=== PATIENT | female | born 1995 | race Caucasian/White ===

== ENCOUNTER 2019-04-05 13:33 | Emergency (ER) | payer SELFPAY ==
[2019-04-05 13:34] VITALS: BP 127/84; PULSE 93; RESP 16; TEMP 36.6; O2SAT 97; BMI 38.4
--- NOTE | 2019-04-05 14:07 | RAD_ITS ---
STUDY: X-RAY CHEST REASON FOR EXAM: Female, 24 years old. CHEST COLD WITH TIGHTNESS TECHNIQUE: Single AP portable view of the chest. COMPARISON: None. FINDINGS: The lungs are clear and expanded. There is no demonstrated pleural abnormality. Normal size heart. Normal mediastinum and lynda. Normal visualized pulmonary arteries. Normal visualized aortic arch and descending thoracic aorta. Normal visualized thoracic spine. Normal visualized ribs, clavicles, and shoulders. There is no demonstrated abnormality of the visualized soft tissue structures of the upper abdomen. RAD/Chest 1 View (Portable) IMPRESSION: Normal x-ray examination of the chest. Electronically Signed: Janusz Ramirez MD at 15:44 EST , Service support ,
[2019-04-05 15:31] VITALS: PULSE 89; RESP 17; TEMP 36.8
[2019-04-05] MEDS: Mag Hydrox/Al Hydrox/Simeth 30 ML UDC PO (16:00)
--- NOTE | 2019-04-05 16:00 | ED.DCSUM_ITS ---
- ER Visit Summary Date of Service: 04/05/19 Chief Complaint: Chest tightness History of Present Illness: The patient is a 24 F who presents with chest tightness that began yesterday morning when she woke up. Patient states it feels tight in her upper chest. Patient states she has been having some difficu lty swallowing. Patient states she is able to swallow some liquids but feels like there is something that gets stuck in her chest. Patient also states she has been having to chew her food really small in order to be able to swallow. Patient admits to some slight shortness of breath. Patient admits to some pain in her upper back. Patient states her pain is also worse with deep breathing and coughing. Patient admits to nausea but denies any vomiting. Physical Examination: Vital signs are stable. Patient is afebrile. Patient is in no acute distress. Oral mucosa is pink and moist. Neck is supple. Trachea is midline. There is no JVD noted. Heart was regular rate and rhythm. Lungs are clear and equal bilaterally. Abdomen is soft. Bowel sounds are normal. Th ere is no tenderness. Cranial nerves II through XII are intact. There are no focal motor or sensory deficits noted. Test Results: Portable chest x-ray was obtained. There is no acute cardiopulmonary process. This was interpreted by the radiologist and myself. Emergency Department Course and Treatment: Patient was given a GI cocktail here. Patient had no improvement of her symptoms with this. Patient was instructed to follow-up with her primary care physician in 5 to 7 days. Patient was instructed return if she is unable to swallow anything. Patient and family understood and were agreeable with the plan. All questions were answered. Disposition: Discharge home Impression: Chest congestion This note was generated with [employer] dictation software. It may contain incorrect words, spelling, and punctuation that were not noted in review of the chart prior to signing ED Disposition - Plan for ED Patient: Disposition: Home or Assisted Living Diagnosis: Chest congestion Instructions: CHEST PAIN, Uncertain Cause Referrals: Mika Starr DO [Primary Care Provider] - 5-7 Days
[2019-04-05 17:06] VITALS: PULSE 88; RESP 16; TEMP 36.8; O2SAT 97
== END 2019-04-05 17:08 | disposition home or self-care (01) ==
PROVIDERS: Emergency Provider Emergency Medicine; Family Provider Family Medicine; PCP Family Medicine
DX: R09.89 Other specified symptoms and signs involving the circulatory and respiratory systems (principal); M54.9 Dorsalgia, unspecified; R51 Headache; R11.0 Nausea; R06.09 Other forms of dyspnea; R07.9 Chest pain, unspecified
CPT/HCPCS: 71045; 99283

== ENCOUNTER → 2020-10-16 15:36 | Outpatient (CLI) | payer SELFPAY ==
[2020-10-16 14:34] VITALS: BMI 38.4
[2020-10-16 16:26] LABS: Estradiol 31.9 pg/mL; Prolactin 11.4 ng/mL
[2020-10-16 16:27] LABS: Hemoglobin A1c 5.6 % (3.8-5.6)
[2020-10-23 07:57] LABS: Testosterone Free 1.5 pg/mL (0.0-4.2)
[2020-10-26 12:58] LABS: 17-Hydroxyprogesterone 46 ng/dL (.)
== END ==
PROVIDERS: PCP Family Medicine; Referring Provider Obstetrics & Gynecology; Visit Provider Obstetrics & Gynecology
DX: N93.9 Abnormal uterine and vaginal bleeding, unspecified (principal); D25.9 Leiomyoma of uterus, unspecified
CPT/HCPCS: 36415; 82627; 82670; 83001; 83036; 83498; 84146; 84402; 82626

== ENCOUNTER → 2020-10-20 10:16 | Outpatient (CLI) | payer SELFPAY ==
[2020-10-16 14:34] VITALS: BMI 38.4
--- NOTE | 2020-10-20 10:24 | US_ITS ---
STUDY: ULTRASOUND OF THE FEMALE PELVIS - COMPLETE REASON FOR EXAM: Female, 25 years old. aub/uterine fibroid LMP: 10/13/2020. TECHNIQUE: Transabdominal and Transvaginal TECHNICAL QUALITY: Adequate. COMPARISON: None. FINDINGS: The uterus is anteverted and is in a midline position. The uterus measures 9.3 cm x 5.3 cm x 3.8 cm. Normal uterine cervix. The endometrium measures 8.5 mm in thickness, and is hyperechoic. There is no demonstrated endometrial mass. There is evidence of a 8.1 cm x 7.6 x 6 cm pedunculated uterine fundal fibroid. I.U.D. - The patient does not have an I.U.D. The right ovary is visualized. The right ovary measures 2.9 cm x 2.2 cm x 1.9 cm. There is no right ovarian cyst or ovarian mass. There is no visualized right adnexal mass or complex lesion. There is normal arterial and normal venous vascularity. The left ovary is visualized. The left ovary measures 2.6 cm x 1.5 cm x 1.3 cm. There is no left ovarian cyst or ovarian mass. There is no visualized left adnexal mass or complex lesion. There is normal arterial and normal venous vascularity. There is a moderate amount of fluid in the cul-de-sac. US/Transvaginal Non- IMPRESSION: Large fibroid. Moderate amount of free fluid in the pelvis. Electronically Signed: Carlo Clancy MD at 15:42 EDT , Service support ,
--- NOTE | 2020-10-20 10:24 | US_ITS ---
STUDY: ULTRASOUND OF THE FEMALE PELVIS - COMPLETE REASON FOR EXAM: Female, 25 years old. aub/uterine fibroid LMP: 10/13/2020. TECHNIQUE: Transabdominal and Transvaginal TECHNICAL QUALITY: Adequate. COMPARISON: None. FINDINGS: The uterus is anteverted and is in a midline position. The uterus measures 9.3 cm x 5.3 cm x 3.8 cm. Normal uterine cervix. The endometrium measures 8.5 mm in thickness, and is hyperechoic. There is no demonstrated endometrial mass. There is evidence of a 8.1 cm x 7.6 x 6 cm pedunculated uterine fundal fibroid. I.U.D. - The patient does not have an I.U.D. The right ovary is visualized. The right ovary measures 2.9 cm x 2.2 cm x 1.9 cm. There is no right ovarian cyst or ovarian mass. There is no visualized right adnexal mass or complex lesion. There is normal arterial and normal venous vascularity. The left ovary is visualized. The left ovary measures 2.6 cm x 1.5 cm x 1.3 cm. There is no left ovarian cyst or ovarian mass. There is no visualized left adnexal mass or complex lesion. There is normal arterial and normal venous vascularity. There is a moderate amount of fluid in the cul-de-sac. US/Pelvic (Non ) IMPRESSION: Large fibroid. Moderate amount of free fluid in the pelvis. Electronically Signed: Carlo Clancy MD at 15:42 EDT , Service support ,
== END ==
PROVIDERS: PCP Family Medicine; Referring Provider Obstetrics & Gynecology; Visit Provider Obstetrics & Gynecology
DX: N93.9 Abnormal uterine and vaginal bleeding, unspecified (principal); D25.9 Leiomyoma of uterus, unspecified
CPT/HCPCS: 76830; 76856

== ENCOUNTER 2020-12-02 08:20 | Inpatient (IN) | payer SELFPAY ==
[2020-10-16 14:34] VITALS: BMI 38.4
[2020-12-02] VITALS (14 sets, daily range): BP systolic 109–127; BP diastolic 62–89; PULSE 74–102; RESP 16–18; TEMP 36.4–36.8; O2SAT 93–100; BMI 39.6; BMI 41.8
--- NOTE | 2020-12-02 02:36 | HP.PCM_ITS ---
History and Physical Date of Admission: 12/02/20 Vital Signs 11/06/20 12:59 11/06/20 12:59 Height 5 ft 6 in Weight: 243 lb BMI 39.2 38.4 BP 134/90 H Intake Visit Reasons: 4 WK FU Pediatric Speech Therapist Required: No Is patient in pain?: Yes Allergies No Known Allergies Allergy (Verified 11/06/20 12:59) Medications norethindrone acetate 5 mg tablet 5 mg PO .COMPLEX #30 tab 10/16/20 [Rx Confirmed 11/06/20] sertraline 100 mg tablet 100 mg PO DAILY 10/16/20 [History Confirmed 11/06/20] Post menopausal: No Patient : No : No FOR[facility]LY [facility], [facility] Medical History Anxiety Family History Grandmother CVA (cerebral vascular accident) Diabetes Grandfather CVA (cerebral vascular accident) Diabetes Social History Smoking Status: Never smoker alcohol intake: never substance use type: does not use what type of physical activity do you participate in: none seatbelt use: always do you feel safe at home: Yes additional social history: Alba Hernandez- [place] siding [facility] 4 WK FU Details: SARAH LEE is a 25 year old who presents for fu of AUB and uterine fibroid. she is having increased pain and having trouble working due to this. She will bend over or go to lift something and have severe nausea and sharp shooting pain in her lower belly. She also feels bloating and discomfort in the mid to upper abdomen. She is having heavy irregular bleeding also. Female Reproductive History Menopausal Symptoms: Yes hot flashes, Yes night sweats, No difficulty concentrating and No change in libido Pregancy History 0 Elective abortions Hx Para Spontaneous abortions Hx # Term Pregnancies Ectopic pregnancies Hx # Pregnancies Multiple births # of living children ROS Const Constitutional: Reports night sweats; Denies fatigue, weight gain or weight loss ENT ENT: Reports system reviewed and no additional complaints, except as documented Cardio Card: Denies chest pain Resp Resp: Denies cough or dyspnea GI GI: Reports as per HPI; Denies constipation, nausea or vomiting : Reports as per HPI, hot flashes, menorrhagia, metrorrhagia and urinary frequency; Denies nipple discharge, pelvic pain, vaginal discharge, vaginal dryness, vaginal odor or vaginal pruritus Musc Musc: Denies arthralgias, back pain or muscle weakness Skin Skin/Breast: Denies alopecia, change in hair, dry skin, breast mass, breast pain, breast skin changes or nipple discharge Neuro Neuro: Reports system reviewed and no additional complaints, except as documented Psych Psych: Reports system reviewed and no additional complaints, except as documented; Denies change in libido or difficulty concentrating Endo Endo: Denies cold intolerance, excessive sweating, heat intolerance or polydipsia Shorty/Lymph Hematologic/Lymphatic: Denies easy bleeding, Denies easy bruising and Denies lymphadenopathy Exam Const General: cooperative, healthy appearing, comfortable, no acute distress and well developed Orientation: alert [facility] Head: normal to inspection and normocephalic Ears: hearing grossly normal bilaterally and external ears normal Nose: external nose normal and nares normal Face and sinus: normal facial exam Neck Neck: normal visual inspection and no lymphadenopathy Thyroid: thyroid normal Chest Chest palpation & inspection: normal inspection of the chest Resp Effort & Inspection: normal respiratory effort Auscultation: clear to auscultation bilaterally Cardio Rate: regular rate Rhythm: regular rhythm Heart Sounds: S1 normal and S2 normal GI Inspection: normal to inspection, non-distended and other (Enlarged uterus palpable on exam) Palpation: soft and no hepatosplenomegaly Musc Other: gross motor intact no deficits, full bilateral strength Skin General: no rashes or lesions noted Neuro General: patient alert, patient awake, moves all extremities and no focal motor deficits Motor: muscle tone normal throughout Extrem General: normal to inspection and no pedal edema Psych Appearance: grossly normal Mental Status: mental status grossly normal Affect: normal affect Speech and Movement: speech and movement normal Coding Level of Care Code Off vis,est,level 4 Diagnoses Fibroid, uterine D25.9 Infertility due to oligo-ovulation N97.0 Abnormal uterine bleeding due to intramural leiomyoma N93.9; D25.1 Anxiety F41.9 Assessment and Plan Assessment and Plan (1) Fibroid, uterine: Status: Acute Comment: naproxen, percocet PRN, plan abdominal myomectomy. Plan - Dr. Miryam Keating MD: After discussing the patient's diagnosis and treatment plan options, patient wishes to proceed with surgical management. I have discussed with the patient the risks, benefits, and alternatives of the procedure which include but are not limited to risks of anesthesia, bleeding, infection, possible damage to bowel, bladder, or surrounding vasculature which could lead to additional surgery to evaluate any complications. Patient agrees to procedure and wishes to proceed. ACOG/uptodate references given for additional information regarding procedure. (2) Infertility due to oligo-ovulation: Status: Acute Comment: lab evaluation ordered. possible PCOS (3) Abnormal uterine bleeding due to intramural leiomyoma: Status: Acute Comment: 6 cm subserosal fibroid, oligomenorrhea will evaluate for PCOS. stop OCP and will take Aygestin PRN (4) Anxiety: Status: Acute Comment: zoloft, increased with aviane
[2020-12-02 08:49] LABS: Internal QC Validated? YES +Cl - CLEAR BKGD
--- NOTE | 2020-12-02 08:51 | OP.PCM_ITS ---
Problems Associated Problem List Diagnoses (1) Anxiety: (2) Abnormal uterine bleeding due to intramural leiomyoma: (3) Infertility due to oligo-ovulation: (4) Fibroid, uterine: Report of Operation Date of Procedure: 12/02/20 Pre-Operative Diagnosis: uterine fibroid Post-Operative Diagnosis: same Surgery/Procedure Performed:: abdominal myomectomy dishwashing machine repairer: Spencer Craft Type of Anesthesia: General Special Medications: vasopressin, surgicel Specimen's removed: fibroid Drains: molina Estimated Blood Loss (mL): 100 Fluids Replaced: crystalloid Description of Procedure: The patient was taken to the operating room and placed under general anesthesia in the dorsal supine position. She was prepped and draped in the normal sterile fashion. Molina catheter was placed in the bladder SCDs were on and preoperative antibiotics were given. A Pfannenstiel skin incision was made with the scalpel and carried through the underlying layer of the fascia with the scalpel, fascia was nicked in the midline, incision extended laterally. Rectus bellies were dissected off superiorly and inferiorly sharply and bluntly and peritoneum entered digitally, incision stretched laterally and the retractor was placed after the bowel was packed away. The uterus was identified and noted to be significantly enlarged approximately 9x7 cm subserosal. The ovaries were noted to be within normal limits. Vasopressin was injected into the fibroid and under their serosa. Incision was made across the serosa and then the fibroid was shelled out without complication. The uterine defect was closed in 3 layers with first 3- Monocryl and finishing with a baseball stitch of 4-0 Monocryl across the uterine serosa. intercede was placed over the incision after excellent hemostasis was noted. Excellent hemostasis was noted all instruments removed from the abdomen and the peritoneum was closed with 3-0 Monocryl fascia closed with 0 PDS subcutaneous tissue reapproximated with 3-0 Monocryl and the skin closed with 4-0 Monocryl. Patient was awoken and taken recovery in stable condition. Complications none Admit VTE Documentation VTE Present on Admission: No VTE Mechan Device Prophylaxis: SCD's VTE Pharm Prophylaxis ordered?: Yes Multi Select Codes Urinary/Genital Urinary/Genital CPT Codes: 50009 Myomectomy, 1-4fibroids <250gr uterus
[2020-12-02 08:52] LABS: Pregnancy, Urine Negative Negative
--- NOTE | 2020-12-02 08:57 | PCM.DC ---
Discharge Instructions Diet Discharge Diet: No restrictions Activity Discharge Activity: Return to Normal Activity, May Not Drive (while taking narcotic pain medications.) and May Shower May resume sexual activity in: 6-8 weeks Weight Bearing Status: Weight bearing as tolerated Dressing / Incision Call your doctor if your incision/area has: Continuous Slow Oozing, Sudden Increased Bleeding, Increased Pain/ Swelling, Increased Redness and Foul Smelling Discharge Call your doctor if you observe: Fever of 101 or Higher, Inability to urinate, Inability to have a bowel movement and Using more than 1 pad per hour Follow Up Care Please Follow Up With: Miryam Keating MD Test Results: Test results from this visit will be discussed in further detail at your follow-up appointment, if applicable. Discharge Plan Admission Admit Date/Time: 12/02/20 08:20 Primary Reason for Your Visit: fibroid removal Attending Provider: Miryam Keating Primary Care Provider: Carrie Mckeon Consulting Providers: Torie Boykin Discharge Orders/Prescriptions Prescriptions: New naproxen 250 MG tablet 250 - 500 mg PO Q8H PRN PRN (Reason: MILD PAIN) Qty: 30 RF: 1 oxycodone-acetaminophen [Percocet] 5-325 mg tablet 1 tab PO Q6H PRN (Reason: pain) 7 Days Qty: 20 RF: 0 Continued sertraline [Zoloft] 100 mg tablet 100 mg PO BID RF: 0 Referrals / Follow Up: Carrie Mckeon PA [Primary Care Provider] -
[2020-12-02 09:11] LABS: Absolute Lymphocyte Count 2.24 X10^3/uL (0.83-4.51); Absolute Neutrophil Count 6.6 X10^3/uL (2.0-7.7); Basophil# 0.03 X10^3/uL; Basophil% 0.3 % (0-1); Eosinophil# 0.09 X10^3/uL; Eosinophils% 0.9 % (0-5); Hematocrit 43.4 % (37-47); Hemoglobin 13.7 g/dL (12.0-15.0); Lymphocyte # 2.24 X10^3/ul (0.83-4.51); Lymphocyte % 23.6 % (19-41); Mean Corp Hgb Conc 31.6 g/dL (32-36); Mean Corpuscular Volume 82.5 fL (81-99); Mean Platelet Vol. 8.6 fl (6.2-12.0); Monocyte# 0.53 X10^3/uL; Monocyte% 5.6 % (0-10); NRBC Flagged by Analyzer 0 % (0-5); Neutrophil # 6.57 X10^3/uL (2.7-7.7); Neutrophil % 69.4 % (47-70); Platelet Count 446 K/mm3 (150-450); RBC Distribution Width CV 13.1 % (11.6-14.6); RBC Distribution Width SD 39.7 fl (35.1-43.9); Red Blood Count 5.26 M/mm3 (4.2-5.4); White Blood Count 9.5 K/mm3 (4.4-11.0)
[2020-12-02] MEDS: Lactated Ringers 1,000 ML 100 ML IV ×2 (09:23→10:31)
[2020-12-02] MEDS: Cefotetan 2 GM in 0.9% NS 100 ML IV (09:40)
--- NOTE | 2020-12-02 10:00 | UTER_PTH ---
PATIENT: SARAH LEE LOC: MS3 U#:[id number] AGE/SX: 25/F ROOM: WY305 RE12/02/[address]: Dr. Miryam Keating MD : 1995 BED: 1 DIS: 12/03/2020 SPEC #: [id number] RECD: 12/02/20 13:09 STATUS: BANDAR GRULLONPk #: [id number] JANET: 12/02/20 10:[address]: Miryam Keating DEPT: SURGICAL PATHOLOGY RECD BY: Sharon Lopez ENTERED: 12/02/20 13:26 SP TYPE: UTERINE CO OTHR DR: MD Carrie Jones PA Tissues: Uterine cervix, NOS Procedures: Surgery Specimen Level IV HEADER OPERATION: Abdominal myomectomy PRE-OP DIAGNOSIS: Abnormal uterine bleeding, uterine fibroid TISSUE SUBMITTED: Uterine fibroid MICROSCOPIC DIAGNOSIS Uterine fibroid, myomectomy: Leiomyoma (8.5 cm in greatest dimension) with extensive area of hyalinization. TIARA:ana 12/03/2020 MICROSCOPIC DESCRIPTION Slides are reviewed. GROSS DESCRIPTION Received in fixative is one container labeled with the patient's name and designated uterine fibroid. The specimen consists of a nodular piece of dutton, indurated tissue weighing 174 gm and measuring 8.5 x 7 x 6 cm. Sections of this mass reveals dutton whorled cut surfaces without areas of hemorrhage, necrosis or cystic degeneration. [employer] Teacher sections are submitted in four cassettes. / Desiree 12/02/20 TC:1 CPT: 98356
[2020-12-02] MEDS: Vasopressin 20 UNITS/ML Vial (10:30)
[2020-12-02] MEDS: Lactated Ringers 1,000 ML 70 ML IV (13:45)
--- NOTE | 2020-12-02 13:49 | NURSING ---
toradol and tylenol not on unit nor is it accessible in accudose at this time
--- NOTE | 2020-12-02 14:38 | NURSING ---
toradol and tylenol still not avialable in accudose or have arrived to unit
[2020-12-02] MEDS: Ketorolac 30 MG/ML Syringe IV ×2 (14:46→21:41)
[2020-12-02] MEDS: Acetaminophen 500 MG Tablet 1000 MG PO ×2 (14:47→21:41)
[2020-12-02] MEDS: oxyCODONE 5 MG Tablet PO (16:13)
[2020-12-02] MEDS: Magnesium Chloride 64 MG Delay Rel.Tablet 128 MG PO (16:13)
[2020-12-02] MEDS: Docusate Sodium 100 MG Capsule PO (21:41)
[2020-12-02] MEDS: Sertraline 100 MG Tablet PO (21:41)
--- NOTE | 2020-12-02 22:54 | NURSING ---
covid 19 emergency charting initiated 12/02/20
[2020-12-03 03:04] VITALS: BP 116/67; PULSE 70; RESP 18; TEMP 36.9; O2SAT 97
[2020-12-03] MEDS: Acetaminophen 500 MG Tablet 1000 MG PO ×2 (03:12→08:58)
[2020-12-03] MEDS: Lactated Ringers 1,000 ML 70 ML IV (03:12)
[2020-12-03] MEDS: Ketorolac 30 MG/ML Syringe IV ×2 (03:13→08:58)
[2020-12-03 07:25] LABS: Hematocrit 41.1 % (37-47); Hemoglobin 12.7 g/dL (12.0-15.0); Mean Corp Hgb Conc 30.9 g/dL (32-36); Mean Corpuscular Hgb 26.1 pg (27.0-32.0); Mean Corpuscular Volume 84.6 fL (81-99); Platelet Count 455 K/mm3 (150-450); RBC Distribution Width CV 13.1 % (11.6-14.6); RBC Distribution Width SD 40.3 fl (35.1-43.9); Red Blood Count 4.86 M/mm3 (4.2-5.4); White Blood Count 15.6 K/mm3 (4.4-11.0)
--- NOTE | 2020-12-03 07:55 | PN.OBGYN_ITS ---
Subjective Subjective patient recovering well, denies CP, SOB, N, or V. patient is up in chair,tolerating adequate po, and pain is controlled. Objective Data Objective Data Vital Signs: Vital Signs Temp Pulse Resp BP Pulse Ox 98.5 F 70 18 116/67 97 12/03/20 03:04 12/03/20 03:04 12/03/20 03:04 12/03/20 03:04 12/03/20 03:04 Oxygen Flow Rate (L/min) 2 Oxygen Delivery Method Room Air Weight: 260 lb 9.382 oz Body Mass Index (BMI) 41.8 Intake & Output: Intake and Output for Last 24 Hours 12/01/20 12/02/20 12/03/20 23:59 23:59 23:59 Intake Total 2198.33 / 2198.33 1441.5 / 1441.5 Output Total 550 / 550 1300 / 1300 Balance 1648.33 / 1648.33 141.5 / 141.5 Lab / Micro Data Result Diagrams: 12/03/20 06:00 Labs: Laboratory Results - last 24 hr 12/02/20 08:35: Urine Test Negative 12/02/20 09:00: WBC 9.5, RBC 5.26, Hgb 13.7, Hct 43.4, MCV 82.5, MCH 26.0 L, MCHC 31.6 L, RDW Std Deviation 39.7, RDW Coeff of Roberto 13.1, Plt Count 446, MPV 8.6, Immature Gran % (Auto) 0.200, Neut % (Auto) 69.4, Lymph % (Auto) 23.6, [place] % (Auto) 5.6, Eos % (Auto) 0.9, Baso % (Auto) 0.3, Absolute Neuts (auto) 6.6, Absolute Lymphs (auto) 2.24, Nucleated RBC % 0 12/02/20 09:00: Blood Type O POSITIVE, Antibody Screen NEGATIVE 12/03/20 06:00: WBC 15.6 H, RBC 4.86, Hgb 12.7, Hct 41.1, MCV 84.6, MCH 26.1 L, MCHC 30.9 L, RDW Std Deviation 40.3, RDW Coeff of Roberto 13.1, Plt Count 455 H, MPV 9.0 Micro: Microbiology 12/01/20 09:00 Interface Orders SARS-CoV-2 Antigen (Rapid) - Final Physical Exam Const alert, oriented x3 and no apparent distress Resp normal respiratory effort GI soft to palpation and non-distended Inspection: incision other (dressing dry and intact) Narrative: Minimal drainage on peripad Bladder / Kidney Exam: catheter in place Assessment & Plan (1) S/P myomectomy: COMMENT: abdominal 12/02/20 PLAN: patient is s/p myomectomy POD 1 1. routine ERAS protocol postop care- increase ambulation, encourage oral intake and oral control of pain. lovenox and scds for dvt prophylaxis, patient stable for discharge to home.
[2020-12-03 08:11] VITALS: O2SAT 95
[2020-12-03 08:55] VITALS: BP 106/61; PULSE 80; RESP 16; TEMP 36.6; O2SAT 99
[2020-12-03] MEDS: Enoxaparin 40 MG/0.4 ML Syringe SC (08:58)
[2020-12-03] MEDS: Docusate Sodium 100 MG Capsule PO (08:58)
[2020-12-03] MEDS: Sertraline 100 MG Tablet PO (08:58)
--- NOTE | 2020-12-03 10:12 | CASEMGMT ---
SARA COBB Assessment: Face to Face with pt for initial transition planning/care coordination assessment. RN REZA introduced self and role at [facility], pt voices understanding and consents to assessment. Pt is A/O x4 and answers all questions appropriately at this time. Pt sitting up in chair with in room in no distress. Care providers, pharmacy, and demographics verified/updated. Admitting Dx: lap robotic myomectomy PCP: Carrie BUI Specialists: Rishabh COMPUTER FORENSIC EXAMINER Preferred Pharmacy: [facility] in [place] Insurance: [employer], [facility] Package Plan Prescription Benefit: no LW/HPOA: Pt denies having a LW/DPOA and denies need for info regarding AD. LNOK: Yolanda Teetrager, Living Arrangements: Pt lives with in a two story house with 3 steps to enter. Pt is I in ADL's. Transportation: Pt drives self and denies concerns with transportation. DME/HHC: Pt denies having any DME or hx of HHC. Pt states no concerns with going home at time of dc. Pt states no further concerns/needs. CM to follow. Advised pt to ask CM if any further question/concerns/needs arise, voices understanding. Pt Goal: Home Plan: Home
--- NOTE | 2020-12-03 11:22 | PHA.DC.MC ---
Pharmacy Service has performed discharge medication reconciliation and counseling for this patient. 1. NAPROXEN 250-500MG PO Q8H PRN MILD PAIN 2. OXYCODONE/ACETAMINOPHEN 5/325MG PO Q6H PRN PAIN The patient's discharge medication list was reviewed for discrepancies and discrepancies were resolved. Home Medications sertraline 100 mg tablet 100 mg PO BID 10/16/20 naproxen 250 - 500 mg PO Q8H PRN PRN #30 tab 12/02/20 oxycodone-acetaminophen [Percocet] 1 tab PO Q6H PRN 7 Days #20 tab 12/02/20 The patient was counseled on the following discharge medications and changes in medications for homegoing were reviewed. The Reason for Use, instructions for use, and potential side effects were reviewed for all new medications. The patient's questions regarding all of their medications were answered. The patient was able to verbally demonstrate an understanding of their discharge medications.
[2020-12-03 12:30] VITALS: BP 115/69; PULSE 64; RESP 16; TEMP 36.7; O2SAT 98
--- NOTE | 2020-12-03 13:16 | CASEMGMT ---
Social Work Note SW received update that pt requested to stay at [facility] last night due to anxiety. Pt is being discharged. SW in to speak with pt. SW introduced self and role at [facility]. Pt is alert and orientated. Pt's Yolanda present in room, gave this worker permission to speak to her in front of her guest. Pt states that her anxiety is doing well, states she is on medications prescribed through her PCP. Pt denied any concerns at home, states that her relationship with her is safe and healthy. Pt denied additional needs or concerns at this time. Luana House ICE HOCKEY COACH, FOOD SERVICE AIDE
== END 2020-12-03 13:20 | disposition home or self-care (01) | DRG 742 ==
LOC: ACINP 08:22 → MS3 14:56
PROVIDERS: Anesthesiology; Admitting Provider Obstetrics & Gynecology; PCP Physician Assistant; Referring Provider Obstetrics & Gynecology; Visit Provider Obstetrics & Gynecology
PROC: 0UT90ZZ Resection of Uterus, Open Approach (ICD-10-PCS; CPT 58150; principal; 2020-12-02 09:45)
DX: D25.1 Intramural leiomyoma of uterus (principal); Z68.41 Body mass index [BMI] 40.0-44.9, adult; D25.2 Subserosal leiomyoma of uterus; N97.0 Female infertility associated with anovulation; F41.9 Anxiety disorder, unspecified; E66.01 Morbid (severe) obesity due to excess calories
CPT/HCPCS: 36415; 81025; 85025; 85027; 86850; 86900; 86901; 87426; 88305; 94762; 99251; C9803; J7120; G0463; J2405

== ENCOUNTER 2021-07-03 16:39 | Outpatient (CLI) | payer SELFPAY ==
[2021-07-14 17:02] LABS: HPV Reflexed? NOT INDICATED
== END 2021-07-03 23:59 | disposition home or self-care (01) ==
LOC: LABSPEC 16:39
PROVIDERS: PCP Physician Assistant; Referring Provider Obstetrics & Gynecology; Visit Provider Obstetrics & Gynecology
DX: Z12.4 Encounter for screening for malignant neoplasm of cervix (principal)
CPT/HCPCS: 88175; G0145

== ENCOUNTER → 2021-07-21 | Outpatient (CLI) | payer SELFPAY ==
--- NOTE | 2021-07-21 07:47 | US_ITS ---
STUDY: ULTRASOUND OF THE FEMALE PELVIS - COMPLETE REASON FOR EXAM: Female, 26 years old. irregular mensees- EXCESSIVE TECHNIQUE: Endovaginal. Transvaginal US was obtained to better visualized the ovaries. COMPARISON: 10/20/2020 FINDINGS: The uterus is anteverted and is in a midline position. The uterus measures 6.5 x 5.7 cm. Normal uterine cervix. The endometrium measures 5 mm in thickness, and is hyperechoic. There is no demonstrated endometrial mass. There is no demonstrated myometrial mass. I.U.D. - The patient does not have an I.U.D. The right ovary is visualized. The right ovary measures 3.2 x 2.6 cm. There is no right ovarian cyst or ovarian mass. There is no visualized right adnexal mass or complex lesion. There is normal arterial and normal venous vascularity. The left ovary is visualized. The left ovary measures 3.7 x 3.3 cm. There is no left ovarian cyst or ovarian mass. There is no visualized left adnexal mass or complex lesion. There is normal arterial and normal venous vascularity. There is free fluid in the pelvis. This can be physiologic. Urinary bladder volume of 40 9 cc. US/Pelvic (Non ) IMPRESSION: There is free fluid in the pelvis. This can be physiologic. Electronically Signed: Omid Knowles MD at 18:17 EDT ,
--- NOTE | 2021-07-21 07:47 | US_ITS ---
STUDY: ULTRASOUND OF THE FEMALE PELVIS - COMPLETE REASON FOR EXAM: Female, 26 years old. irregular mensees- EXCESSIVE TECHNIQUE: Endovaginal. Transvaginal US was obtained to better visualized the ovaries. COMPARISON: 10/20/2020 FINDINGS: The uterus is anteverted and is in a midline position. The uterus measures 6.5 x 5.7 cm. Normal uterine cervix. The endometrium measures 5 mm in thickness, and is hyperechoic. There is no demonstrated endometrial mass. There is no demonstrated myometrial mass. I.U.D. - The patient does not have an I.U.D. The right ovary is visualized. The right ovary measures 3.2 x 2.6 cm. There is no right ovarian cyst or ovarian mass. There is no visualized right adnexal mass or complex lesion. There is normal arterial and normal venous vascularity. The left ovary is visualized. The left ovary measures 3.7 x 3.3 cm. There is no left ovarian cyst or ovarian mass. There is no visualized left adnexal mass or complex lesion. There is normal arterial and normal venous vascularity. There is free fluid in the pelvis. This can be physiologic. Urinary bladder volume of 40 9 cc. US/Transvaginal Non- IMPRESSION: There is free fluid in the pelvis. This can be physiologic. Electronically Signed: Omid Knowles MD at 18:17 EDT ,
[2021-07-21 07:52] LABS: Absolute Lymphocyte Count 1.33 X10^3/uL (0.83-4.51); Absolute Neutrophil Count 8.8 X10^3/uL (2.0-7.7); Basophil# 0.04 X10^3/uL; Basophil% 0.4 % (0-1); Eosinophil# 0.08 X10^3/uL; Eosinophils% 0.7 % (0-5); Hematocrit 41.5 % (37-47); Hemoglobin 13.2 g/dL (12.0-15.0); Lymphocyte # 1.33 X10^3/ul (0.83-4.51); Lymphocyte % 12.2 % (19-41); Mean Corp Hgb Conc 31.8 g/dL (32-36); Mean Corpuscular Hgb 26.3 pg (27.0-32.0); Mean Corpuscular Volume 82.7 fL (81-99); Mean Platelet Vol. 8.6 fl (6.2-12.0); Monocyte# 0.56 X10^3/uL; Monocyte% 5.2 % (0-10); NRBC Flagged by Analyzer 0 % (0-5); Platelet Count 460 K/mm3 (150-450); RBC Distribution Width CV 13.3 % (11.6-14.6); RBC Distribution Width SD 40.4 fl (35.1-43.9); Red Blood Count 5.02 M/mm3 (4.2-5.4); White Blood Count 10.9 K/mm3 (4.4-11.0)
[2021-07-21 08:31] LABS: Cholesterol 144 mg/dL (200); Estradiol 29.5 pg/mL; Follicle Stimulating Hormone 6.7 mIU/mL; Glucose 93 mg/dL (74-106); High Density Lipoprotein 51 mg/dL; Prolactin 11.1 ng/mL; Thyroid Stim Hormone (TSH) 3.07 uIU/mL (0.358-3.74); Triglycerides 136 mg/dL; Very Low Density Lipoprotein 27 mg/dL (5-40)
[2021-07-23 16:18] LABS: Testosterone Free 1.7 pg/mL (0.0-4.2)
[2021-07-29 19:27] LABS: 17-Hydroxyprogesterone 35 ng/dL (.)
== END | disposition home or self-care (01) ==
LOC: US 07:45
PROVIDERS: PCP Physician Assistant; Referring Provider Obstetrics & Gynecology; Visit Provider Obstetrics & Gynecology
DX: E66.9 Obesity, unspecified (principal); N92.1 Excessive and frequent menstruation with irregular cycle
CPT/HCPCS: 36415; 76830; 76856; 80061; 82627; 82670; 82947; 83001; 83498; 84146; 84402; 84443; 85025; 82626

== ENCOUNTER → 2022-07-05 | Outpatient (CLI) | payer SELFPAY ==
[2022-07-05 16:25] LABS: Absolute Lymphocyte Count 3.01 X10^3/uL (0.83-4.51); Absolute Neutrophil Count 8.7 X10^3/uL (2.0-7.7); Basophil# 0.06 X10^3/uL; Basophil% 0.5 % (0-1); Eosinophil# 0.07 X10^3/uL; Eosinophils% 0.6 % (0-5); Hematocrit 41.5 % (37-47); Lymphocyte # 3.01 X10^3/ul (0.83-4.51); Mean Corp Hgb Conc 31.3 g/dL (32-36); Mean Corpuscular Hgb 26.1 pg (27.0-32.0); Mean Corpuscular Volume 83.2 fL (81-99); Mean Platelet Vol. 8.3 fl (6.2-12.0); Monocyte# 0.63 X10^3/uL; NRBC Flagged by Analyzer 0 % (0-5); Neutrophil # 8.72 X10^3/uL (2.7-7.7); Neutrophil % 69.5 % (47-70); Platelet Count 545 K/mm3 (150-450); RBC Distribution Width CV 14.6 % (11.6-14.6); RBC Distribution Width SD 44.4 fl (35.1-43.9); Red Blood Count 4.99 M/mm3 (4.2-5.4); White Blood Count 12.5 K/mm3 (4.4-11.0)
[2022-07-05 16:54] LABS: Thyroid Stim Hormone (TSH) 3.06 uIU/mL (0.358-3.74)
== END | disposition home or self-care (01) ==
LOC: LAB 16:07
PROVIDERS: PCP Physician Assistant; Referring Provider Obstetrics & Gynecology; Visit Provider Obstetrics & Gynecology
DX: N93.9 Abnormal uterine and vaginal bleeding, unspecified (principal)
CPT/HCPCS: 36415; 84443; 85025

== ENCOUNTER → 2022-07-26 | Outpatient (CLI) | payer SELFPAY ==
--- NOTE | 2022-07-26 14:19 | US_ITS ---
STUDY: ULTRASOUND OF THE FEMALE PELVIS - COMPLETE REASON FOR EXAM: Female, 27 years old. Abnormal uterine bleeding. LMP: July 20, 2022. TECHNIQUE: Transabdominal and Transvaginal TECHNICAL QUALITY: Adequate. COMPARISON: Comparison is made with prior study dated July 21, 2021. FINDINGS: The uterus is retroverted and is in a midline position. The uterus measures 6.7 cm x 5 cm x 3.6 cm. Normal uterine cervix. The endometrium measures 2.6 mm in thickness, and is hyperechoic. There is no demonstrated endometrial mass. There is no demonstrated myometrial mass. I.U.D. - The patient does not have an I.U.D. The right ovary is visualized. The right ovary measures 3.2 cm x 1.9 cm x 2 cm. There is no right ovarian cyst or ovarian mass. There is no visualized right adnexal mass or complex lesion. There is normal arterial and normal venous vascularity. The left ovary is visualized. The left ovary measures 2.7 cm x 2.1 cm x 1.6 cm. There is no left ovarian cyst or ovarian mass. There is no visualized left adnexal mass or complex lesion. There is normal arterial and normal venous vascularity. There is no fluid in the cul-de-sac. The pre void volume of the bladder was 121 ml. US/Pelvic (Non ) IMPRESSION: Normal female pelvis. Electronically Signed: Carlo Clancy MD at 12:46 EDT ,
== END | disposition home or self-care (01) ==
LOC: US 14:18
PROVIDERS: PCP Physician Assistant; Referring Provider Obstetrics & Gynecology; Visit Provider Obstetrics & Gynecology
DX: N93.9 Abnormal uterine and vaginal bleeding, unspecified (principal)
CPT/HCPCS: 76830; 76856